=== PATIENT | male | born 1955 | race Caucasian/White ===

== ENCOUNTER 2018-06-24 10:45 | Emergency (ER) | payer OTHER ==
[~2018-06-24] VITALS: Ht 167.6 cm; Wt 95.2 kg
[2018-06-24] MEDS ORDERED: LISI20 PO (11:06)
[2018-06-24] MEDS ORDERED: SIMV80 PO (11:06)
[2018-06-24] MEDS ORDERED: Bactrim Ds Tab1 EACH PO (12:41)
[2018-06-24] MEDS ORDERED: CEPH500 PO (12:41)
== END 2018-06-24 12:53 | disposition home or self-care (01) ==
LOC: ER 10:45
DX: L03.032 Cellulitis of left toe (principal); Z88.5 Allergy status to narcotic agent; Z79.899 Other long term (current) drug therapy; I10 Essential (primary) hypertension
CPT/HCPCS: 73660